=== PATIENT | male | born 1950 | race Caucasian/White ===

== ENCOUNTER 2017-10-26 06:55 | Day surgery (SDC) | payer MEDICARE, OTHER ==
[~2017-10-26] VITALS: Ht 172.7 cm; Wt 86.1 kg
[2017-10-26] MEDS ORDERED: PRILOSEC 20MG20 MG PO (07:21)
[2017-10-26] MEDS ORDERED: LIPITOR 10MG10 MG PO (07:22)
[2017-10-26] MEDS ORDERED: TOPROL XL 25MG25 MG PO (07:22)
[2017-10-26] MEDS ORDERED: XARELTO10 MG PO (07:22)
[2017-10-26] MEDS ORDERED: BEE-ZEE1 TAB PO (07:23)
[2017-10-26] MEDS ORDERED: PROBIOTIC FORMU1 CAP PO ×2 (07:23→07:24)
[2017-10-26] MEDS ORDERED: TURMERIC500 MG PO (07:23)
[2017-10-26] MEDS ORDERED: PREVIDENTGEL1.1 DT (07:24)
[2017-10-26] MEDS ORDERED: BIOTENE DRY M1000 ML MM (07:24)
[2017-10-26] MEDS ORDERED: GENTAMICIN180 MG/502 NS (07:25)
[2017-10-26 07:36] VITALS: BP 109/76; PULSE 88; TEMP 98.6
[2017-10-26 08:52] VITALS: BP 116/72; PULSE 71; TEMP 98.5
[2017-10-26 09:05] VITALS: BP 114/68; PULSE 68
[2017-10-26 09:39] VITALS: BP 116/69; PULSE 66
== END 2017-10-26 09:59 | disposition home or self-care (01) ==
LOC: SDCO 06:55
DX: K62.5 Hemorrhage of anus and rectum (principal); K64.0 First degree hemorrhoids; K62.89 Other specified diseases of anus and rectum; I48.91 Unspecified atrial fibrillation; I10 Essential (primary) hypertension; E11.9 Type 2 diabetes mellitus without complications; Z79.01 Long term (current) use of anticoagulants; Z85.818 Personal history of malignant neoplasm of other sites of lip, oral cavity, and pharynx; Z86.010 Personal history of colon polyps
CPT/HCPCS: J2250; J3010; J7030